=== PATIENT | female | born 1995 | race Asian ===

== ENCOUNTER 2017-03-27 14:06 | Emergency (ER) | payer OTHER ==
[~2017-03-27] VITALS: Ht 162.6 cm; Wt 60.8 kg
[2017-03-27 18:10] VITALS: BP 113/76
== END 2017-03-27 18:55 | disposition home or self-care (01) ==
LOC: ED 18:18
DX: R51 Headache (principal); R42 Dizziness and giddiness; R11.0 Nausea
CPT/HCPCS: 36415; 82375; 93005; 99285

== ENCOUNTER 2017-06-28 08:15 | Emergency (ER) | payer OTHER ==
[~2017-06-28] VITALS: Ht 162.6 cm; Wt 62.1 kg
[2017-06-28] MEDS ORDERED: ONDANSETRON 2MG/ML, 2ML IVPush ONE (09:30)
[2017-06-28] MEDS ORDERED: KETOROLAC 30 MG/1 ML IVPush ONE (09:30)
[2017-06-28] MEDS ORDERED: SODIUM CHLORIDE FLUSH 10ML SYR IVF ONE (09:30)
[2017-06-28] MEDS ORDERED: SODIUM CHLORIDE 0.9% 1,000ML IVBOLUS ONE (09:30)
[2017-06-28] MEDS ORDERED: FAMOTIDINE 20 MG/2 ML IVP ONE (09:30)
[2017-06-28] MEDS ORDERED: KETOROLAC 30 MG/1 ML ONE (09:43)
[2017-06-28] MEDS ORDERED: ONDANSETRON 2MG/ML, 2ML ONE (09:43)
[2017-06-28] MEDS ORDERED: FAMOTIDINE 20 MG/2 ML ONE (09:43)
[2017-06-28 10:08] LABS: BASOPHILS # (AUTO) 0.03 x10^3/uL (0-0.1); BASOPHILS % (AUTO) 0 % (0-1); EOSINOPHILS # (AUTO) 0.02 x10^3/uL (0-0.4); EOSINOPHILS % (AUTO) 0 % (1-7); LYMPHOCYTES # (AUTO) 1.53 x10^3/uL (1-3.4); LYMPHOCYTES % (AUTO) 21 % (22-44); MD NO; MEAN CORPUSCULAR HGB CONC 34.2 g/dL (32.4-35.8); MEAN CORPUSCULAR VOLUME 93.7 fL (80-100); MEAN PLATELET VOLUME 7.3 fL (7.4-10.4); MONOCYTES # (AUTO) 0.64 x10^3/uL (0.2-0.8); MONOCYTES % (AUTO) 9 % (2-9); NEUTROPHILS # (AUTO) 4.99 x10^3/uL (1.8-6.8); NEUTROPHILS % (AUTO) 69 % (42-75); PLATELET COUNT 295 x10^3/uL (130-400); RED BLOOD COUNT 4.14 x10^6/uL (3.82-5.3); RED CELL DISTRIBUTION WIDTH 11.9 % (9.6-15.2)
[2017-06-28 10:20] LABS: ALBUMIN 3.5 g/dL (3.4-5.0); ANION GAP 9 mmol/L (5-15); CALCIUM 8.2 mg/dL (8.5-10.1); CHLORIDE 108 mmol/L (98-107); CREATININE 0.54 mg/dL (0.55-1.02)
[2017-06-28 11:04] LABS: HCG UR SG 1.005 (1.003-1.030)
[2017-06-28 12:11] LABS: MICROSCOPIC NOT IND
[2017-06-28 12:13] LABS: CULTURE INDICATED? NO
[2017-06-28 12:47] VITALS: BP 115/86
== END 2017-06-28 12:49 | disposition home or self-care (01) ==
LOC: ED 09:17
DX: O21.8 Other vomiting complicating pregnancy (principal); O26.891 Other specified pregnancy related conditions, first trimester; Z3A.01 Less than 8 weeks gestation of pregnancy
CPT/HCPCS: 36415; 76801; 80048; 81003; 81025; 82040; 84702; 85025; 96361; 96374; 96375; 99285; J1885; J2405; J7030; S0028